=== PATIENT | female | born 1940 | race African-American/Black ===

== ENCOUNTER 2017-03-13 21:17 | Inpatient (IN) | payer MEDICARE, SELFPAY ==
[~2017-03-13 21:17] MED LIST: ISOVUE-370 76%-LOCM 1 ML ONE
[2017-03-13] MEDS ORDERED: Acetaminophen/Codeine 30-300mg Tablet PO PRN ×2 (22:21)
[2017-03-13 22:58] LABS: #Eosinphils 0.1 thou/uL (0.0-0.7); #Lymphocytes 1.6 thou/uL (1.20-3.40); #Monocytes 0.5 thou/uL (0.11-0.59); #Neutrophils 2.1 thou/uL (1.40-6.50); %Basophils 0.7 % (0.0-1.0); %Eosinophils 2.9 % (0.0-10.0); Hematocrit 37.3 % (36.0-47.0); Mean Platelet Volume 6.8 fL (7.4-10.4); Red Blood Cell (RBC) Count 3.83 mill/uL (4.20-5.40); White Blood Cell (WBC) Count 4.3 thou/uL (4.8-10.8)
[2017-03-13 23:04] LABS: PTT 28.7 SEC (22.9-36.1); Prothrombin Time 13.9 SEC (12.0-14.7)
[2017-03-13 23:19] LABS: Anion Gap 13 mmol/L (10-20); BUN (Urea Nitrogen) 17 mg/dL (9.8-20.1); Calc. Creatinine Clearance 0 mL/min (70-130); Calcium 8.9 mg/dL (7.8-10.44); Carbon Dioxide 24 mmol/L (23-31); Chloride 110 mmol/L (98-107); Estimated GFR-MDRD 87
[2017-03-13] MEDS ORDERED: levETIRAcetam 500 MG/100 ML PREMIX BAG ONE (23:20)
--- NOTE | 2017-03-13 23:32 | PDOC.EVN ---
Event Note - Event Note Event Note: [id number] H&P Dictated 1. ICH / Hemorrhagic stroke 2.Bradychardia 3. h/o hpl 4. encephalopathy plan: see orders
[2017-03-14] MEDS: Sodium Chloride 0.9% 1,000 ML IV SCH ×2 (00:44→20:28)
[2017-03-14 00:53] VITALS: BMI 26.4
--- NOTE | 2017-03-14 01:52 | CON ---
DATE OF CONSULTATION: 03/13/2017 HISTORY OF PRESENT ILLNESS: Ms. Mcfarland is a 76-year-old female, presents as a transfer from [facility] (formerly [facility] Emergency Department after having a CT scan of the brain that showed a right frontal spontaneous hemorrhage. She says she did not feel right yesterday afternoon and was actually found this aftern oon at a gas station wandering around. A bystander was looking at her and was concerned because she was alert and oriented, but was slightly confused. She denies any headache, nausea or vomiting at this time. The patient is on no blood thinners and on physical exam, she is completely neurological ly intact except she is somewhat somnolent; however, she is easily awakened when spoken to. [facility] was consulted for the findings on the CT scan that are on a disk from [place]. ALLERGIES: No known drug allergies. CURRENT MEDICATIONS: Unable to obtain as patient is visiting from [place] and does not have her medication list with her. PAST MEDICAL HISTORY: Includes unspecified stroke, followup flu vaccine not up to date PAST SURGICAL HISTORY: Has no surgical history. PSYCHIATRIC HISTORY: Has no previous psychiatric history. SOCIAL HISTORY: The patient denies alcohol use, denies drug use. Has no smoking history. REVIEW OF SYSTEMS: A 10-point review of systems was completed and is negative unless otherwise stat ed in the above HPI. PHYSICAL EXAMINATION: VITAL SIGNS: Blood pressure 144/76, pulse 83, respirations 16, temperature 98.1, O2 sat 99% on room air. CONSTITUTIONAL: The patient is afebrile. Normal pulses. Blood pressure is normal. GENERAL: Alert and oriented x3, somewhat somnolent, in no acute distress, lying in her bed. HEENT: Normocephalic, atraumatic. Hearing intact. Moist mucous membranes. Trachea midline. EYES: Pupils are equal and reactive to light. Extraocular muscles are intact. Sclerae is white, n onicteric. NECK: Normal range of motion. Trachea is midline. No pain in the cervical spine. RESPIRATORY: The patient has bilateral symmetric chest rise. Appears to be in no shortness of alan th. CARDIOVASCULAR: The patient has regular rate and rhythm, normal S1, S2 heart sounds, no distal cyan osis or clubbing noted. ABDOMEN: Abdomen is soft, nondistended. EXTREMITIES: Upper extremity has normal range of motion, normal strength, no dermatomal sensory los s. Lower extremity has normal motion, normal strength bilaterally and no dermatomal sensory loss. NEUROLOGIC: GCS of 15. Normal speech. NIH is 0. Cranial nerves II-XII are grossly intact. Speec h is fluent. She answers my questions appropriately. There are no lateralizing deficits. No cereb ellar deficits on exam. SKIN: Warm and dry skin, normal to touch. PSYCHIATRIC: Normal mood and affect. ASSESSMENT: Ms. Ina Mcfarland is a 76-year-old female, who was transferred from [place] to [facility] after a finding of a right frontal spontaneous hemorrhage on CT of the brain. PLAN: Medicine will admit to ICU. We will get a CTA of the brain as she had a prior endovascular t echnique performed. Keep her systolic blood pressure approximately 150 mmHg. We will do neuro chec ks q.2 hours. If there are any further questions, please feel free to contact Neurosurgery.
[2017-03-14 04:54] LABS: #Eosinphils 0.1 thou/uL (0.0-0.7); #Lymphocytes 1.3 thou/uL (1.20-3.40); #Monocytes 0.6 thou/uL (0.11-0.59); #Neutrophils 2.4 thou/uL (1.40-6.50); %Basophils 0.6 % (0.0-1.0); %Lymphocytes 29.1 % (21.0-51.0); %Monocytes 13.8 % (0.0-10.0); Hematocrit 38.4 % (36.0-47.0); Mean Platelet Volume 6.9 fL (7.4-10.4); Red Blood Cell (RBC) Count 3.91 mill/uL (4.20-5.40); White Blood Cell (WBC) Count 4.5 thou/uL (4.8-10.8)
[2017-03-14 05:14] LABS: Anion Gap 10 mmol/L (10-20); BUN (Urea Nitrogen) 17 mg/dL (9.8-20.1); Calc. Creatinine Clearance 76 mL/min (70-130); Calcium 8.9 mg/dL (7.8-10.44); Carbon Dioxide 25 mmol/L (23-31); Chloride 110 mmol/L (98-107); Estimated GFR-MDRD Greater than 90
--- NOTE | 2017-03-14 06:27 | HP ---
DATE OF ADMISSION: 03/13/2017 CHIEF COMPLAINT: Confusion. HISTORY OF PRESENT ILLNESS: Patient is a 76-year-old female with past medical history of hyperlipidemia. Now brought to the hospital from outside hospital because of the intracranial hemorrhage, according to the patient, today she was confused, so patient was brought to the ER. According to the ER physician and ER nurse, patient was found confused in the gas station. So, EMS was called by the necktie maker and EMS took her to the outside hospital. In the outside hospital, the patient was found to have right inferior frontal lobe hematoma, intraparenchymal hematoma, so patient was transferred here for Neurosurgery evaluation. Patient was seen by the Neurosurgery in the ER and recommended ICU admission and no surgical intervention at this time. Patient currently denies any headache, denies any chest pain, denies any trouble breathing, denies any nausea, denies any vomiting, denies any dizziness, denies any lightheadedness, denies any complaints. PAST MEDICAL HISTORY: Hyperlipidemia. PAST SURGICAL HISTORY: None. SOCIAL HISTORY: Denies smoking, denies alcohol, denies any drugs. FAMILY HISTORY: Positive heart problems. REVIEW OF SYSTEMS: Constitutional: Denies any fever, denies any chills. Eyes : Denies vision problem. Ears: Denies any hearing loss. Neck: Denies any neck pain. Cardiovascular System: Denies any chest pains. Denies any palpitations. Respiratory System: Denies any cough. Denies any sputum production. Gastrointestinal: Denies nausea, vomiting. Cranial nerve system: Positive for confusion. Psychiatric: denies anxiety. Integument: Denies any rash. Musculoskeletal: Denies any joint deformities. All other review of systems are reviewed and are negative. PHYSICAL EXAMINATION: CONSTITUTIONAL/VITAL SIGNS: At the time of H and P performed, blood pressure is 140/70, afebrile, pulse oximetry is 97%. GENERAL APPEARANCE: Patient appears comfortable. HEENT: Pupils are equal, round, and reactive to light. Anterior nares patent. Hearing normal. Teeth intact. Tongue is moist. NECK: Supple. No JVD. CARDIOVASCULAR: S1 and S2 present, bradycardia, heart rate around 50s. No murmurs, no rubs, no gallops. RESPIRATORY SYSTEM: No wheezing. No rhonchi. Normal effort. Breath sounds present bilaterally. GASTROINTESTINAL: Abdomen is soft, nontender, no guarding, no organomegaly, no masses felt. MUSCULOSKELETAL: No edema. NEUROLOGIC: Cranial nerve system: Awake, follows commands. Speech clear. Shunt intact. PSYCHIATRIC: Mood appropriate at this time. INTEGUMENT: No rashes seen. LABORATORY DATA AND IMAGING: At the time of H and P performed, which were done in the outside ER, white count 4.89, hemoglobin 12.1, platelet count is 181. PT 14, INR 1.1, PTT 31.1. CT of the head positive for parenchymal hematoma with right inferior frontal lobe, measuring 3.4 in greatest dimension with adjacent vasogenic edema and subsequent mass effect . EKG positive for sinus bradycardia. ASSESSMENT AND PLAN: The patient is a 76-year-old female: 1. Intracranial hemorrhage. Plan to admit the patient to the ICU. Neurosurgery on board, management per them. Will start Keppra 500 mg IV b.i.d. We will go ahead and start Keppra for now. I did discuss Neurosurgery about steroids per Neurosurgery, no need for steroids at this time. We will monitor the patient closely, neuro checks as recommended by Neurosurgery. We will keep blood pressure less that 150 systolic as they have recommended. 2. Bradycardia, sinus, monitor heart rate closely. We will check TSH level at this time. We will monitor heart rate closely. 3. History of hyperlipidemia. Continue statins. 4. Confusion, resolved at this time. We will monitor mental status closely. If there is any significant change in neuro status we will notify neurosurgery immediately. The case was discussed in detail with the patient, ED physician, ER notes, and the Neurosurgery PA also. YAMILEX
--- NOTE | 2017-03-14 07:29 | PRG ---
DATE OF SERVICE: 03/14/2017 I personally interviewed and examined the patient and agree with documentation of Ruy Allan PA-C, dated 03/13/2017. Briefly, Ina Mcfarland is a 76-year-old woman who has had an aneurysm treated in the past. Yesterd ay she was found wandering around a gas station. She looked confused and was brought to the emergen cy department. A CT scan revealed a right frontal lobe hemorrhage contralateral to where she had he r aneurysm treated. She was sent to [facility] for further care. On arrival Ms. Mcfarland was awake and answering questions. She minimized her past medical history (b ackground from the family says she typically does this and denies many medical issues from which she suffered). She is conversant. She did not have any cranial neuropathies and a CT examination of t he brain performed at our facility did not show any changes from the outside facility. CT angiograp hy was done as well. Overnight, the ICU nurses do not report any issues whatsoever. This morning, Ms. Mcfarland wakes gely goldstein. She gives me her name. I introduced myself and she thank me for coming. I did not find any cr anial neuropathies, I did not find any lateralizing motor or sensory deficits. I reviewed imaging o f the brain and on both studies there is encephalomalacia of the medial portion of the frontal lobes bilaterally. I wonder if this is related to prior aneurysm treatment. It looks like a bifrontal a nterior cerebral infarct with encephalomalacia and some calcification on the right side. Farther ou t laterally and posteriorly in the right frontal lobe there is intracerebral hemorrhage with some pichardo rrounding low density suggestive of edema. There is no change between the two scans in the size of the hemorrhage. There is artifact from [place] coils or tiny clip in her left ICA distribution. I think Ms. Mcfarland could move to floor care in the stroke unit, the medical team will take over as primary and Neurosurgery team will continue to follow during her hospitalization. Inpatient rehabilitation might be warranted. We have initiated the stroke team. Surgical intervent ion is unlikely to be warranted during this admission.
--- NOTE | 2017-03-14 07:42 | CT ---
CT HEAD WITHOUT IV CONTRAST CT ANGIOGRAM HEAD WITH IV CONTRAST AND 3D RECONSTRUCTIONS: DATE: 03/13/17. HISTORY: Patient with headache that is now resolved. [facility] to right frontal lobe parenchymal hematoma. COMPARISON: CT obtained from [facility] on 03/13/17 at 1752 hours. FINDINGS: NONCONTRAST CT HEAD: The right frontal lobe parenchymal hematoma is again seen and overall stable in size with measuremen ts on this examination of 3.4 cm x 3.3 cm with adjacent vasogenic edema. There is effacement of the adjacent cerebral sulci. No significant shift of the midline structures is present. There are bifrontal areas of encephalomalacia with dystrophic calcification seen in the region of ma lacic changes in the right anterior frontal lobe. No additional areas of hemorrhage are seen. There is no acute cortical infarction identified. There is a coil mass seen within the left supraclinoid location. IMPRESSION: 1. Right frontal lobe hematoma with adjacent vasogenic edema and mild mass effect. Findings may be related to recent trauma, coagulopathy, or secondary to underlying lesion. Followup evaluation is recommended to evaluate for expected evolutionary changes in blood products. 2. Bifrontal areas of encephalomalacia with dystrophic calcification on the right. 3. Sinus disease right maxillary antrum. CT ANGIOGRAM OF THE HEAD WITH IV CONTRAST AND 3D RECONSTRUCTIONS: The bilateral common carotid arteries as well as bilateral middle cerebral arteries are patent. The re is a coil mass seen in left supraclinoid location adjacent to the left internal carotid artery. This obscures the M1 segments of each anterior cerebral artery. Significant artifact is present and a portion of the M1 segment of the left cerebral artery is not well visualized as well, but the alvarez ority of the left middle cerebral artery does appear patent. There is a -type origin of the left posterior cerebral artery which is patent. The bilateral v ertebral arteries, basilar artery, and left posterior cerebral arteries are patent. No aneurysm is seen within the limitations of the technique of this examination. Residual aneurysm in the region of the coil mass could not be assessed due to significant artifact. IMPRESSION: 1. 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 There is, otherwis e, no focal stenosis or branch occlusion involving the [place] or vertebrobasilar system. 2. No aneurysm is seen within the limitations of the technique of this exam. 3. Significant spray artifact from coil mass in the left supraclinoid location. POS: DEBBI
--- NOTE | 2017-03-14 08:54 | CON ---
DATE OF CONSULTATION: 03/14/2017 Thirty five minutes critical care time. REASON FOR CONSULTATION: Hemorrhage. HISTORY OF PRESENT ILLNESS: This is a 76-year-old female who presented last night because of confus ion. She was found to be confused at a gas station. She is currently in the state visiting her sis ter in the hospital. The patient lives in [place], [place]. This morning she denied any headache or weakness. PAST MEDICAL HISTORY: Hyperlipidemia for which she takes Lipitor. PAST SURGICAL HISTORY: None. SOCIAL HISTORY: Nonsmoker, does not consume alcohol. FAMILY MEDICAL HISTORY: Remarkable for heart disease. REVIEW OF SYSTEMS: No fever, chills, nausea, vomiting, chest pain, hemoptysis, melena, hematochezia , hematuria or dysuria. PHYSICAL EXAMINATION: VITAL SIGNS: Pulse 46, blood pressure 120/54, O2 sat 100%, respiratory rate 15, temperature 97.0. GENERAL: She is awake, alert and conversant, in no distress. HEENT: Pupils react. Sclerae are anicteric. Oropharynx clear. NECK: No JVD. LUNGS: Clear to auscultation bilaterally without wheezing. CARDIAC: S1 and S2, slightly bradycardic with a 2/6 systolic murmur at the left sternal border. ABDOMEN: Soft and nontender. EXTREMITIES: No clubbing, cyanosis or edema. NEUROLOGIC: Grossly intact throughout. I found no focal weakness. LABORATORY DATA AND IMAGING: White blood cell count 4.5, hemoglobin 12, hematocrit 38 and platelet count 186. INR 1.1. Sodium 141, potassium 3.6, chloride 110, CO2 25, BUN 17, creatinine 0.7, and g lucose 80. CT of the head showed a right frontal hemorrhage, measured about 3 cm x 3 cm with a slig ht compressive effect on the right third ventricle. ASSESSMENT: 1. Right-sided intracranial hemorrhage with no obvious neurologic deficit at this time. 2. Hyperlipidemia. 3. Probable underlying hypertension. PLAN: The patient is being observed in the CCU. I have reviewed her orders. Additionally, I would recommend starting her on Pepcid for GI prophylaxis. She cannot have anticoagulation for DVT proph ylaxis given her intracranial bleed; therefore, she is receiving SCD compression. Further dispositi on per the neurosurgical team.
[2017-03-14] MEDS: Famotidine 20 MG TAB PO SCH ×2 (09:53→20:26)
--- NOTE | 2017-03-14 11:06 | PDOC.PN ---
- Subjective Encounter Start Date: 03/14/17 Encounter Start Time: 11:04 Subjective: sitting up in chair and awake.answers qs -: denies any headache,muscle weakness.no CP/SOB -: no N/V.no abd pain.no dysuria - Objective MAR Reviewed: Yes Vital Signs & Weight: Vital Signs (12 hours) Temp Pulse Pulse Pulse Resp BP BP 03/14/17 10:20 97.9 F 54 L 16 03/14/17 09:10 54 L 56 L 115/51 L 125/65 03/14/17 08:08 46 L 48 L 119/51 L 128/64 03/14/17 08:00 97.8 F 47 L 18 03/14/17 04:00 97.0 F L 03/14/17 02:54 97.8 F 49 L 16 03/14/17 00:20 97.8 F BP Pulse Ox Pulse Ox Pulse Ox 03/14/17 10:20 120/84 100 03/14/17 09:10 03/14/17 08:08 100 100 03/14/17 08:00 99 03/14/17 04:00 03/14/17 02:54 100 03/14/17 00:20 Weight Weight 157 lb 10.088 oz Most Recent Monitor Data Heart Rate from ECG 50 NIBP 125/65 NIBP BP-Mean 92 Respiration from ECG 14 SpO2 100 I&O: 03/13/17 03/14/17 03/15/17 06:59 06:59 06:59 Intake Total 223 232 Output Total 655 535 Balance -432 -303 Result Diagrams: 03/14/17 04:29 03/14/17 04:29 Radiology Reviewed by me: Yes (CTA-previuos coiling.no new aneursym.Frontal bleed ) Phys Exam - Physical Examination Constitutional: NAD nonchalant behaviour HEENT: PERRLA, moist MMs, sclera anicteric, oral pharynx no lesions Neck: no nodes, no JVD, supple, full ROM Respiratory: no wheezing, no rales, no rhonchi, clear to auscultation bilateral Cardiovascular: RRR, no significant murmur Gastrointestinal: soft, non-tender, no distention, positive bowel sounds Musculoskeletal: no edema, pulses present Neurological: non-focal, normal sensation, moves all 4 limbs Psychiatric: normal affect, A&O x 3 Skin: no rash Dx/Plan (1) ICH (intracerebral hemorrhage) Code(s): I61.9 - NONTRAUMATIC INTRACEREBRAL HEMORRHAGE, UNSPECIFIED Status: Acute Qualifiers: Intracerebral hemorrhage etiology: nontraumatic Cerebral hemorrhage location: cerebral hemisphere, unspecified portion Laterality: right Qualified Code(s): I61.2 - Nontraumatic intracerebral hemorrhage in hemisphere, unspecified (2) Delirium Code(s): R41.0 - DISORIENTATION, UNSPECIFIED Status: Acute Comment: Due to ICH (3) HLD (hyperlipidemia) Code(s): E78.5 - HYPERLIPIDEMIA, UNSPECIFIED Status: Chronic Qualifiers: Hyperlipidemia type: unspecified Qualified Code(s): E78.5 - Hyperlipidemia , unspecified - Plan PT/OT, oncology social work, out of bed/ambulate, DVT proph w/SCDs Clinically improved. cont neuro checks. -: SCD.PPI.NS following.BP controlled.PRN meds ordered as below. -: cont supportive care.OK to transfer to stroke * . Review of Systems - Review of Systems Constitutional: negative: Fever, Chills, Sweats, Weakness, Malaise, Other Respiratory: negative: Cough, Dry, Shortness of Breath, Hemoptysis, SOB with Excertion, Pleuritic Pain, Sputum, Wheezing Cardiovascular: negative: Chest Pain, Palpitations, Orthopnea, Paroxysmal Noc. Dyspnea, Edema, Light Headedness, Other Gastrointestinal: negative: Nausea, Vomiting, Abdominal Pain, Diarrhea, Constipation, Melena, Hematochezia, Other Genitourinary: negative: Dysuria, Frequency, Incontinence, Hematuria, Retention , Other Musculoskeletal: negative: Neck Pain, Shoulder Pain, Arm Pain, Back Pain, Hand Pain, Leg Pain, Foot Pain, Other Skin: negative: Rash, Lesions, Ronald, Bruising, Other Neurological: negative: Weakness, Numbness, Incoordination, Change in Speech, Confusion, Seizures, Other - Medications/Allergies Allergies/Adverse Reactions: Allergies Allergy/AdvReac Type Severity Reaction Status Date / Time No Known Allergies Allergy Verified 03/14/17 03:27 Medications: Current Medications Acetaminophen/Codeine Phosphate (Tylenol #3) 1 tab PO Q4H PRN PRN Reason: Moderate Pain (4-6) Acetaminophen/Codeine Phosphate (Tylenol #3) 2 tab PO Q4H PRN PRN Reason: Pain 6-10 Famotidine (Pepcid) 20 mg PO BID [facility] Last Admin: 03/14/17 09:53 Dose: 20 mg Hydralazine HCl (Apresoline) 10 mg SLOW IVP Q4H PRN PRN Reason: SBP GREATER THAN 160 Sodium Chloride (Normal Saline 0.9%) 1,000 mls @ 50 mls/hr IV .Q20H [facility] Last Admin: 03/14/17 00:44 Dose: 1,000 mls
[2017-03-15 07:45] VITALS: BP 118/60; TEMP 97.9
[2017-03-15] MEDS: Famotidine 20 MG TAB PO SCH (08:53)
--- NOTE | 2017-03-15 11:20 | PRG ---
DATE OF SERVICE: 03/15/2017 This is a 15 minutes subsequent visit note in which 15 minutes were spent in review the imaging [address], evaluation of the patient. Greater than 50% was spent in counseling on Ina Mcfarland, [birth year] 42. SUBJECTIVE: Ms. Mcfarland is doing very well following her intracerebral hemorrhage. She follows com mands in all 4 extremities and appears to be in no distress. She has asked about going home today a nd frankly I would be fine with that if she has met criteria. There is no need for neurosurgical in tervention. DIAGNOSIS: Intracerebral hemorrhage.
--- NOTE | 2017-03-15 11:26 | PDOC.PN ---
- Subjective Encounter Start Date: 03/15/17 Encounter Start Time: 11:24 Subjective: feels better. no weakness,slurred speech,confusion.family at bedside - Objective MAR Reviewed: Yes Vital Signs & Weight: Vital Signs (12 hours) Temp Pulse Resp BP Pulse Ox 03/15/17 08:00 97.9 F 52 L 16 99 03/15/17 07:28 97.9 F 52 L 16 118/60 99 03/15/17 03:56 97.7 F 53 L 20 119/60 95 03/14/17 23:41 97.5 F L 46 L 20 119/67 98 Weight Weight 173 lb 14.4 oz Most Recent Monitor Data Heart Rate from ECG 50 NIBP 125/65 NIBP BP-Mean 92 Respiration from ECG 14 SpO2 100 I&O: 03/14/17 03/15/17 03/16/17 06:59 06:59 06:59 Intake Total 223 1332 Output Total 655 1235 Balance -432 97 Result Diagrams: 03/14/17 04:29 03/14/17 04:29 Phys Exam - Physical Examination Constitutional: NAD HEENT: PERRLA, moist MMs, sclera anicteric, oral pharynx no lesions, 2+ tonsils Neck: no nodes, no JVD, supple, full ROM Respiratory: no wheezing, no rales, no rhonchi, clear to auscultation bilateral Cardiovascular: RRR, no significant murmur, no rub, gallop Gastrointestinal: soft, non-tender, no distention, positive bowel sounds Musculoskeletal: no edema, pulses present Neurological: non-focal, normal sensation, moves all 4 limbs Psychiatric: normal affect, A&O x 3 Skin: no rash Dx/Plan (1) ICH (intracerebral hemorrhage) Code(s): I61.9 - NONTRAUMATIC INTRACEREBRAL HEMORRHAGE, UNSPECIFIED Status: Acute Qualifiers: Intracerebral hemorrhage etiology: nontraumatic Cerebral hemorrhage location: cerebral hemisphere, unspecified portion Laterality: right Qualified Code(s): I61.2 - Nontraumatic intracerebral hemorrhage in hemisphere, unspecified (2) Delirium Code(s): R41.0 - DISORIENTATION, UNSPECIFIED Status: Acute Comment: Due to ICH (3) HLD (hyperlipidemia) Code(s): E78.5 - HYPERLIPIDEMIA, UNSPECIFIED Status: Chronic Qualifiers: Hyperlipidemia type: unspecified Qualified Code(s): E78.5 - Hyperlipidemia , unspecified - Plan DVT proph w/SCDs neurologically intact.cleared by NS for DC -: instructed to not take ASA for at least [address] -: will f/u w PCP in [place] in 2-3 days and neuroSx referral as well. -: disucssed w pt and family * . Review of Systems - Review of Systems Constitutional: negative: Fever, Chills, Sweats, Weakness, Malaise, Other Respiratory: negative: Cough, Dry, Shortness of Breath, Hemoptysis, SOB with Excertion, Pleuritic Pain, Sputum, Wheezing Cardiovascular: negative: Chest Pain, Palpitations, Orthopnea, Paroxysmal Noc. Dyspnea, Edema, Light Headedness, Other Gastrointestinal: negative: Nausea, Vomiting, Abdominal Pain, Diarrhea, Constipation, Melena, Hematochezia, Other Genitourinary: negative: Dysuria, Frequency, Incontinence, Hematuria, Retention , Other Musculoskeletal: negative: Neck Pain, Shoulder Pain, Arm Pain, Back Pain, Hand Pain, Leg Pain, Foot Pain, Other Neurological: negative: Weakness, Numbness, Incoordination, Change in Speech, Confusion, Seizures, Other - Medications/Allergies Allergies/Adverse Reactions: Allergies Allergy/AdvReac Type Severity Reaction Status Date / Time No Known Allergies Allergy Verified 03/14/17 03:27 Medications: Current Medications Acetaminophen/Codeine Phosphate (Tylenol #3) 1 tab PO Q4H PRN PRN Reason: Moderate Pain (4-6) Acetaminophen/Codeine Phosphate (Tylenol #3) 2 tab PO Q4H PRN PRN Reason: Pain 6-10 Famotidine (Pepcid) 20 mg PO BID [facility] Last Admin: 03/15/17 08:53 Dose: 20 mg Hydralazine HCl (Apresoline) 10 mg SLOW IVP Q4H PRN PRN Reason: SBP GREATER THAN 160 Sodium Chloride (Normal Saline 0.9%) 1,000 mls @ 50 mls/hr IV .Q20H [facility] Last Admin: 03/14/17 20:28 Dose: Not Given
--- NOTE | 2017-03-15 13:01 | DIS ---
DATE OF ADMISSION: 03/13/2017 DATE OF DISCHARGE: 03/15/2017 CONDITION AT THE TIME OF DISCHARGE: Stable and improved. PRIMARY CARE PHYSICIAN: Out of town in [place]. DISCHARGE DIAGNOSES: 1. Intracerebral hemorrhage. 2. Encephalopathy secondary to #1. 3. History of dyslipidemia. DISCHARGE MEDICATIONS: Simvastatin 20 mg at bedtime. The patient is instructed to stop her aspirin until seen by the Neurosurgeon or primary care physician in [place]. 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 CT scan of the head done in the outpatient setting was also re-read by our radiologist, which showed right frontal lobe hematoma with the adjacent vasogenic edema and mild mass effect. CONSULTATIONS: Include: 1. Critical Care Medicine. 2. Neurosurgery, Dr. Mclean and Dr. Mcfadden. ADMISSION HISTORY: Ms. Mcfarland is a very pleasant 76-year-old -[place] female with past med ical history of dyslipidemia who was found wandering around in a gas station in [place] and was br ought into the emergency room. A CT scan done in the ER showed right-sided frontal lobe hematoma an d she was transferred for our facility for neurosurgical evaluation. She was admitted to the medici ne service with Neurosurgical consultation as they did not deem her a surgical candidate. She was n eurologically intact at the time of presentation and hemodynamically stable. A CT scan was reviewed and a CT angio was done with the results above-mentioned. Please see admission history and physica l for further details. HOSPITAL COURSE: The patient remained stable throughout her hospitalization. She was very briefly put in ICU and because she was stable, she was transferred to the stroke floor. Dr. Canada saw her while in the ICU. Dr. Mclean saw her from Neurosurgery Department as well as Dr. Mcfadden. The p atient had no neurological deficits and her mentation cleared as well. She was taken off of aspirin at this time. On the day of discharge, she is almost back to her baseline and both of her brothers are in the room . The plan for her is to go to [place] at her sister's house and fly out to [place] to be with h er to see primary care physician and Neurosurgery. Discharge plan was discussed with the pa tient and the family and they verbalize understanding. The patient was seen and examined prior to discharge. Please see hospitalist progress note from matty meier's date for further details.
--- NOTE | 2017-03-16 07:03 | CON ---
DATE OF CONSULTATION: 03/14/2017 REFERRING PROVIDER: Dr. Bj De Leon. REASON FOR CONSULTATION: Intracerebral hemorrhage. HISTORY OF PRESENT ILLNESS: Ms. Mcfarland is a pleasant 76-year-old -[place] female who has b een consulted for evaluation of intracerebral hemorrhage. The history is obtained from the patient as well as her over the phone. Per , the patient has a history of aneurysm rupture i n 2013 that resulted in left frontal ICH. She was admitted to a hospital in [place] where she is from. She had undergone cerebral arteriogram over there, which had shown for a cerebral aneurysm. They were able to coil two cerebral aneurysms and was supposed to follow two of the smaller aneurys ms which were not a candidate for coiling at that time. reports that she had recovered well following her intracerebral hemorrhage; however, she had refused to follow up on her scans after th e initial intracerebral hemorrhage. She was visiting here in town to take care of her sister who wa s recently diagnosed with a cancer. She reported that she had gone to [employer] to get something and w hen she came out, she got very confused and did not know where she was. She had locked herself out of the car and had called for help. When EMS arrived, she was found nearby the gas station, [facility]. For this reason, she was brought to the [facility]. On arrival here, she had a CT head without contrast done, which showed a new right frontal ICH. She had a CT angiogram of the head done as well, which was limited in evaluation due to the fact that coiling distorted the images; however, there was no apparent aneurysms seen based on the scan. I am being asked to [facility] evaluate for this recent confusion. According to the patient's brother, her confusion is slowly improving. She denies any headache, vision changes, numbness, tingling, weakness, difficulty with b alance, dysarthria, or dysphagia. PAST MEDICAL HISTORY: Significant for cerebral aneurysm and hyperlipidemia. PAST SURGICAL HISTORY: Significant for aneurysm coiling done in 2013. FAMILY HISTORY: Significant for heart problems. SOCIAL HISTORY: She denies smoking, alcohol use, or illicit drug use. CURRENT MEDICATIONS: Please review MAR. ALLERGIES: No known drug allergies. REVIEW OF SYSTEMS: As mentioned in the HPI, otherwise negative. PHYSICAL EXAMINATION: VITAL SIGNS: Blood pressure of 130/61, pulse of 46, temperature of 97.7, respirations of 18, O2 sat s of 98% on room air. GENERAL: Well-developed, well-nourished -[place] female, in no apparent distress. RESPIRATORY: Clear to auscultation bilaterally. CARDIOVASCULAR: Regular rate and rhythm. NEUROLOGICAL: Mental status: The patient is awake, alert, oriented x3. Speech and language: Flue nt speech. Cranial nerves: Pupils are 3 mm and reactive. Visual latham are intact. External musc les are intact. No nystagmus is noted. Face is symmetric. Tongue and uvula are midline. Motor ex am showed normal tone and bulk with 5/5 strength in both upper and lower extremities. Sensory: Sen sation is intact and symmetric. Deep tendon reflexes: 2+ reflexes in both upper and lower extremit ies. Babinski: Plantar responses flexion bilaterally. Coordination: Intact to bilaterally. Romberg is negative. Gait is normal. LABORATORY DATA: Reviewed, which included CBC, BMP, which is significant for WBC of 4.5, otherwise unremarkable. IMAGING STUDIES: CT angiogram of the head and neck and CT head without contrast were reviewed, for which the findings as noted on the HPI section. IMPRESSION: 1. Right frontal intracerebral hemorrhage. 2. Cerebral aneurysm. Ms. Mcfarland is a pleasant 76-year-old -[place] female visiting from [place], presented wi th an episode of confusion. She is found to have a new right frontal intracerebral hemorrhage. Giv en that she has a history of four cerebral aneurysms with two being smaller and non-coiled, it is li ravindra that she may have had aneurysm rupture that may have resulted in the recent hemorrhagic event. I have discussed with the patient's in detail and explained that she may need to have a cer ebral arteriogram done to further evaluate the stability of the two aneurysms that have not been coi led. I have also encouraged that he needs to make sure that she follows up with her neurologist as well as interventional neurologist for her cerebral aneurysm and may need to have the test done year ly for followup. The patient remained stable overnight. She is okay to be discharged to home from my standpoint. Thank you for your consultation.
== END 2017-03-15 11:57 | disposition home or self-care (01) | DRG 64 ==
LOC: ERS 21:17 → EDBD 21:17 → CCU 23:52 → 2SE 03-14 10:11
PROVIDERS: ADMIT Internal Medicine; ATTEND Internal Medicine
DX: I61.9 Nontraumatic intracerebral hemorrhage, unspecified (principal); G93.40 Encephalopathy, unspecified; G93.6 Cerebral edema; I67.1 Cerebral aneurysm, nonruptured; R00.1 Bradycardia, unspecified; E78.5 Hyperlipidemia, unspecified; Z86.79 Personal history of other diseases of the circulatory system
CPT/HCPCS: 36415; 70496; 80048; 85025; 85610; 85730; 96374; G8978-GP-CJ; G8979-GP-CH; G8987-GO-CK; G8988-GO-CI; G8996-GN-CH; G8997-GN-CH; J1953